=== PATIENT | female | born 1985 | race African-American/Black ===

== ENCOUNTER 2018-09-26 06:11 | Emergency (ER) | payer MEDICAID ==
[~2018-09-26] VITALS: Ht 160 cm; Wt 96.0 kg
[2018-09-26] MEDS ORDERED: ACETAMINOPHEN 325MG TABLET PO ONE (06:45)
[2018-09-26 07:32] LABS: BASOPHILS % 0.3 % (0.0-2.0); EOSINOPHILS % 2.3 % (0.0-5.0); HEMATOCRIT. 37.7 % (36.0-48.0); HEMOGLOBIN. 12.8 g/dL (12.0-16.0); LYMPHOCYTES % 36.4 % (20.0-50.0); MEAN CORPUSCULAR HEMOGLOBIN 28.4 pg (28.0-32.0); MEAN PLATELET VOLUME 8.9 fl (7.4-10.4); MONOCYTES % 8.5 % (2.0-8.0); NEUTROPHILS % 52.5 % (40.0-76.0); PLATELET 251 x1000/uL (130-400); RED BLOOD CELL COUNT 4.49 mill/uL (4.2-5.4); RED CELL DISTRIBUTION WIDTH 14.2 % (11.6-14.6)
[2018-09-26 07:40] LABS: CLARITY URINE CLOUDY (CLEAR); COLOR URINE YELLOW (YELLOW); KETONES URINE NEGATIVE (NEGATIVE); LEUKOCYTE ESTERASE URINE 1+ (NEGATIVE); NITRITE URINE NEGATIVE (NEGATIVE); OCCULT BLOOD URINE 3+ (NEGATIVE); PROTEIN URINE 1+ (NEGATIVE); SPECIFIC GRAVITY URINE 1.028 (1.005-1.030); UROBILINOGEN URINE 0.2 E.U./dL (0.2-1.0)
[2018-09-26 07:41] LABS: CHLORIDE 106 mEq/L (98-107)
[2018-09-26 08:06] LABS: B-HCG QUANTITATIVE 10229 mIU/mL (<3)
[2018-09-26 09:14] VITALS: BP 109/68
[2018-09-27 02:07] LABS: HEMATOCRIT 35.7 % (36.0-48.0); HEMOGLOBIN 12.1 g/dL (12.0-16.0); MEAN CORPUSCULAR HEMOGLOBIN 28.5 pg (28.0-32.0); MEAN CORPUSCULAR VOLUME 83.9 fL (81.0-99.0); PLATELET 235 x1000/uL (130-400); RED BLOOD CELL COUNT 4.26 mill/uL (4.2-5.4); RED CELL DISTRIBUTION WIDTH 14.1 % (11.6-14.6)
== END 2018-09-26 09:18 | disposition home or self-care (01) ==
LOC: ER 06:11
DX: O20.0 Threatened abortion (principal); O23.41 Unspecified infection of urinary tract in pregnancy, first trimester; Z3A.01 Less than 8 weeks gestation of pregnancy
CPT/HCPCS: 36415; 76801; 76817; 80053; 81003; 81025; 84702; 85025; 86850; 86900; 86901; 99284; Z7610; 85027

== ENCOUNTER 2018-09-26 23:07 | Emergency (ER) | payer MEDICAID ==
[~2018-09-26] VITALS: Ht 160 cm; Wt 96.0 kg
[2018-09-27 04:20] VITALS: BP 137/90
== END 2018-09-27 04:28 | disposition home or self-care (01) ==
LOC: ER 23:07
DX: O26.891 Other specified pregnancy related conditions, first trimester (principal); O20.0 Threatened abortion; Z3A.01 Less than 8 weeks gestation of pregnancy
CPT/HCPCS: 99283

== ENCOUNTER 2019-08-28 08:27 | Inpatient (IN) | payer MEDICAID ==
[~2019-08-28] VITALS: Ht 162.6 cm; Wt 112.5 kg
[2019-08-28] MEDS ORDERED: DEXT 5%/LR + PITOCIN 20UNITS/L 1,000 ML IV SCH ×2 (08:53→12:37)
[2019-08-28] MEDS ORDERED: METHYLERGONOVINE MALEATE 0.2 MG/ML IM PRN (09:00)
[2019-08-28] MEDS ORDERED: NALOXONE HCL 0.4 MG/ML 1ML VIAL IM PRN (09:00)
[2019-08-28] MEDS ORDERED: LACTATED RINGERS 1,000 ML IV SCH (09:00)
[2019-08-28] MEDS ORDERED: CARBOPROST TROMETHAMINE 250 MCG/ML AMPUL IM PRN (09:00)
[2019-08-28 10:01] LABS: INR 0.9; PARTIAL THROMBOPLASTIN TIME 25.4 sec (23.4-31.0); PROTHROMBIN TIME 9.5 sec (9.6-11.0)
[2019-08-28 10:02] LABS: CLARITY URINE CLOUDY (CLEAR); COLOR URINE YELLOW (YELLOW); KETONES URINE NEGATIVE (NEGATIVE); LEUKOCYTE ESTERASE URINE TRACE (NEGATIVE); NITRITE URINE NEGATIVE (NEGATIVE); OCCULT BLOOD URINE TRACE (NEGATIVE); PROTEIN URINE TRACE (NEGATIVE); SPECIFIC GRAVITY URINE 1.022 (1.005-1.030); UROBILINOGEN URINE 0.2 E.U./dL (0.2-1.0)
[2019-08-28 10:05] LABS: BASOPHILS % 0.2 % (0.0-2.0); EOSINOPHILS % 0.9 % (0.0-5.0); HEMATOCRIT. 34.3 % (36.0-48.0); HEMOGLOBIN. 11.6 g/dL (12.0-16.0); LYMPHOCYTES % 20.4 % (20.0-50.0); MEAN CORPUSCULAR HEMOGLOBIN 28.6 pg (28.0-32.0); MEAN CORPUSCULAR VOLUME 84.5 fL (81.0-99.0); MEAN PLATELET VOLUME 9.2 fl (7.4-10.4); MONOCYTES % 9.2 % (2.0-8.0); NEUTROPHILS % 69.3 % (40.0-76.0); PLATELET 229 x1000/uL (130-400); RED BLOOD CELL COUNT 4.06 mill/uL (4.2-5.4); RED CELL DISTRIBUTION WIDTH 14.4 % (11.6-14.6)
[2019-08-28] MEDS ORDERED: METOCLOPRAMIDE HCL 10MG/2ML VIAL ONE (10:28)
[2019-08-28] MEDS ORDERED: PHENYLEPHRINE HCL 10 MG/ML 1ML (IV VIAL) IV ONE (10:28)
[2019-08-28] MEDS ORDERED: GLYCOPYRROLATE 0.2 MG/ML 2ML VIAL ONE (10:28)
[2019-08-28] MEDS ORDERED: ONDANSETRON HCL 4MG/2ML INJ ONE (10:28)
[2019-08-28] MEDS ORDERED: FENTANYL CITRATE/PF 50MCG/ML 2ML VIAL ONE (10:28)
[2019-08-28] MEDS ORDERED: OXYTOCIN 10 UNITS/ML 1ML ONE (10:28)
[2019-08-28] MEDS ORDERED: EPHEDRINE SULFATE 50MG/ML VIAL ONE (10:28)
[2019-08-28] MEDS ORDERED: MORPHINE SULFATE/PF 1MG/ML 10ML AMP ONE (10:28)
[2019-08-28] MEDS ORDERED: CEFAZOLIN SODIUM 1000MG/VIAL ONE (10:28)
[2019-08-28 10:44] LABS: *AMPHETAMINES SCREEN URINE NEGATIVE (NEGATIVE); *BARBITURATES SCREEN URINE NEGATIVE (NEGATIVE)
[2019-08-28 10:45] LABS: *BENZODIAZEPINES SCREEN URINE NEGATIVE (NEGATIVE); *COCAINE SCREEN URINE NEGATIVE (NEGATIVE); CANNABINOID URINE SCREEN NEGATIVE (NEGATIVE); METHADONE URINE SCREEN NEGATIVE (NEGATIVE); OPIATES URINE SCREEN NEGATIVE (NEGATIVE); PHENCYCLIDINE URINE SCREEN NEGATIVE (NEGATIVE)
[2019-08-28] MEDS ORDERED: CITRIC ACID/SODIUM CITRATE SOLN 30ML UDC PO NR (10:45)
[2019-08-28] MEDS ORDERED: KETOROLAC 60MG/2ML VIAL IM ONE (11:13)
[2019-08-28] MEDS ORDERED: DIPHENHYDRAMINE 50MG/ML VIAL ONE (11:13)
[2019-08-28] MEDS ORDERED: ESMOLOL HCL 10MG/ML 10ML VIAL IV ONE (11:21)
[2019-08-28] MEDS ORDERED: BUTORPHANOL TARTRATE 2 MG/ML VIAL IV PRN (12:00)
[2019-08-28] MEDS ORDERED: NALOXONE HCL 0.4 MG/ML 1ML VIAL IV PRN (12:00)
[2019-08-28] MEDS ORDERED: IBUPROFEN 400MG TABLET PO PRN (12:45)
[2019-08-28] MEDS ORDERED: LANOLIN OINT 7GM TUBE TOP PRN (12:45)
[2019-08-28] MEDS ORDERED: BISACODYL 10MG SUPP PR PRN (12:45)
[2019-08-28] MEDS ORDERED: HEMORRHOIDAL SUPP PR PRN (12:45)
[2019-08-28] MEDS ORDERED: ONDANSETRON HCL 4MG/2ML INJ IV PRN (12:45)
[2019-08-28 14:07] LABS: HEPATITIS B SURFACE ANTIGEN NEGATIVE
[2019-08-28 14:45] VITALS: BP 91/50
[2019-08-28 15:15] VITALS: BP 94/50
[2019-08-28 19:16] VITALS: BP 98/50
[2019-08-28] MEDS: DIPHENHYDRAMINE 50MG/ML VIAL IV PRN (19:57)
[2019-08-28] MEDS: KETOROLAC 30MG/ML VIAL IV SCH (20:00)
[2019-08-28] MEDS: DOCUSATE SODIUM 100MG CAPSULE PO SCH (21:00)
[2019-08-28] MEDS: SIMETHICONE 80MG TABLET CHEW PO SCH (22:00)
[2019-08-28] MEDS: MAGNESIUM/ALUMINUM HYDROXIDE/SIMETHICONE 30ML UDC PO SCH (22:00)
[2019-08-28 23:45] VITALS: BP 99/52
[2019-08-29 03:17] VITALS: BP 92/53
[2019-08-29] MEDS: KETOROLAC 30MG/ML VIAL IV SCH ×2 (03:17)
[2019-08-29 08:00] VITALS: BP 95/61
[2019-08-29] MEDS: PRENATAL VIT/FE FUMARATE/FA TABLET PO SCH (09:28)
[2019-08-29] MEDS: FERROUS SULFATE 325MG TABLET PO SCH ×3 (09:28→14:05)
[2019-08-29] MEDS: MAGNESIUM/ALUMINUM HYDROXIDE/SIMETHICONE 30ML UDC PO SCH ×4 (09:28→21:01)
[2019-08-29] MEDS: SIMETHICONE 80MG TABLET CHEW PO SCH ×4 (09:29→21:01)
[2019-08-29] MEDS: DIPHENHYDRAMINE 50MG/ML VIAL IV PRN (09:29)
[2019-08-29] MEDS: ACETAMINOPHEN WITH CODEINE 300/30MG TABLET PO PRN ×2 (13:56→21:01)
[2019-08-29 14:02] LABS: BASOPHILS % 0.1 % (0.0-2.0); EOSINOPHILS % 0.5 % (0.0-5.0); HEMATOCRIT. 27.6 % (36.0-48.0); HEMOGLOBIN. 9.3 g/dL (12.0-16.0); LYMPHOCYTES % 12.3 % (20.0-50.0); MEAN CORPUSCULAR HEMOGLOBIN 28.9 pg (28.0-32.0); MEAN CORPUSCULAR VOLUME 85.3 fL (81.0-99.0); NEUTROPHILS % 80.1 % (40.0-76.0); PLATELET 198 x1000/uL (130-400); RED BLOOD CELL COUNT 3.23 mill/uL (4.2-5.4); RED CELL DISTRIBUTION WIDTH 14.7 % (11.6-14.6)
[2019-08-29 16:00] VITALS: BP 116/68
[2019-08-29 21:00] VITALS: BP 99/67
[2019-08-29] MEDS: DOCUSATE SODIUM 100MG CAPSULE PO SCH (21:02)
[2019-08-30 04:10] VITALS: BP 111/74
[2019-08-30] MEDS: ACETAMINOPHEN WITH CODEINE 300/30MG TABLET PO PRN (04:14)
[2019-08-30] MEDS: HYDROCODONE/ACETAMINOPHEN 5/325MG TABLET PO PRN ×3 (06:04→20:41)
[2019-08-30 08:00] VITALS: BP 105/72
[2019-08-30] MEDS: SIMETHICONE 80MG TABLET CHEW PO SCH ×2 (08:51→20:41)
[2019-08-30] MEDS: FERROUS SULFATE 325MG TABLET PO SCH (08:51)
[2019-08-30] MEDS: PRENATAL VIT/FE FUMARATE/FA TABLET PO SCH (08:51)
[2019-08-30 16:25] VITALS: BP 109/79
[2019-08-30 20:01] VITALS: BP 101/71
[2019-08-30] MEDS: MAGNESIUM/ALUMINUM HYDROXIDE/SIMETHICONE 30ML UDC PO SCH (20:41)
[2019-08-30] MEDS: DOCUSATE SODIUM 100MG CAPSULE PO SCH (20:41)
[2019-08-31 00:35] VITALS: BP 102/64
[2019-08-31 04:00] VITALS: BP 124/80
[2019-08-31] MEDS: HYDROCODONE/ACETAMINOPHEN 5/325MG TABLET PO PRN (04:10)
[2019-08-31] MEDS: ACETAMINOPHEN WITH CODEINE 300/30MG TABLET PO PRN ×2 (06:11→10:58)
[2019-08-31 10:58] VITALS: BP 124/80
[2019-08-31] MEDS: PRENATAL VIT/FE FUMARATE/FA TABLET PO SCH (10:58)
== END 2019-08-31 11:30 | disposition home or self-care (01) | DRG 540 ==
LOC: OBSVTOIN 08:27 → 8 EST LDRP 08:27 → 8EST 14:45
PROVIDERS: ADMIT Obstetrics & Gynecology; ATTEND Obstetrics & Gynecology
PROC: 10D00Z1 Extraction of Products of Conception, Low, Open Approach (ICD-10-PCS; principal; 2019-08-28)
DX: O34.211 Maternal care for low transverse scar from previous cesarean delivery (principal); D62 Acute posthemorrhagic anemia; O90.81 Anemia of the puerperium; Z37.0 Single live birth; Z3A.40 40 weeks gestation of pregnancy
CPT/HCPCS: 36415; 80305; 81003; 86592; 86703; 86762; 86850; 86900; 86920; 87340; 88307; J0690; J1200; J1885; J2274; J2370; J2405; J2590; J2765; J3010; J3490; J7120; A4315